=== PATIENT | female | born 1940 | race Caucasian/White ===

== ENCOUNTER 2021-10-20 07:13 | Inpatient (IN) | payer MEDICARE ==
[~2021-10-20] VITALS: Ht 167.6 cm; Wt 64.0 kg
[~2021-10-20 07:13] MED LIST: ARICEPT5 MG PO; ELIQUIS2.5 MG PO; ENDOCET 10-3251 EACH PO; LISINOPRIL-HCT1 EAC2 PO; MELATONIN5 M2 PO; MIRALAX17 GM PO; NEURONTIN 300300 MG PO; OXYCODONE HCL10 MG PO; REQUIP3 MG PO; ZOCOR20 MG PO
[2021-10-20] MEDS ORDERED: CALCIUM + D3 E1 EACH PO (12:40)
[2021-10-22 03:06] LABS: HEMOGLOBIN 11.4 gm/dl (12.3-15.3); RED BLOOD COUNT 3.72 M/UL (4.00-5.10); WHITE BLOOD COUNT 15.9 K/UL (4.5-11.0)
--- NOTE | 2021-10-22 10:52 | NUR ---
dr. miranda on the floor and seeing patient received order to insert ng tube if patient have episode of vomiting and to d/c dressing and leave open to air.
[2021-10-23 02:59] LABS: WHITE BLOOD COUNT 12.7 K/UL (4.5-11.0)
[2021-10-23 03:14] LABS: HEMOGLOBIN 9.3 gm/dl (12.3-15.3)
[2021-10-24 02:58] LABS: HEMOGLOBIN 8.5 gm/dl (12.3-15.3); RED BLOOD COUNT 2.74 M/UL (4.00-5.10)
[2021-10-24 03:02] LABS: WHITE BLOOD COUNT 6.5 K/UL (4.5-11.0)
[2021-10-24 03:23] LABS: BUN/CREATININE RATIO 18 (0-10)
[2021-10-25 02:56] LABS: HEMOGLOBIN 8.9 gm/dl (12.3-15.3); RED BLOOD COUNT 2.99 M/UL (4.00-5.10); WHITE BLOOD COUNT 7.6 K/UL (4.5-11.0)
[2021-10-25 03:32] LABS: BUN/CREATININE RATIO 13 (0-10)
[2021-10-26 02:53] LABS: HEMOGLOBIN 8.6 gm/dl (12.3-15.3); RED BLOOD COUNT 2.76 M/UL (4.00-5.10); WHITE BLOOD COUNT 6.8 K/UL (4.5-11.0)
[2021-10-26 03:06] LABS: BUN/CREATININE RATIO 8 (0-10)
== END 2021-10-29 13:45 | disposition home or self-care (01) | DRG 331 ==
LOC: OR 07:13 → M/S 18:56 → OR 18:57 → M/S 10-29 13:45
PROVIDERS: ADMIT Surgery
PROC: 0DJD4ZZ Inspection of Lower Intestinal Tract, Percutaneous Endoscopic Approach (ICD-10-PCS; 2021-10-20)
PROC: 0DTG0ZZ Resection of Left Large Intestine, Open Approach (ICD-10-PCS; principal; 2021-10-20 10:55)
DX: C18.9 Malignant neoplasm of colon, unspecified (principal); I10 Essential (primary) hypertension; Z20.822 Contact with and (suspected) exposure to COVID-19; K44.9 Diaphragmatic hernia without obstruction or gangrene; M79.7 Fibromyalgia; M19.90 Unspecified osteoarthritis, unspecified site; G89.29 Other chronic pain; E78.5 Hyperlipidemia, unspecified; Z87.39 Personal history of other diseases of the musculoskeletal system and connective tissue; Z86.39 Personal history of other endocrine, nutritional and metabolic disease; Z85.42 Personal history of malignant neoplasm of other parts of uterus; Z80.9 Family history of malignant neoplasm, unspecified; Z80.0 Family history of malignant neoplasm of digestive organs; Z88.1 Allergy status to other antibiotic agents; Z88.8 Allergy status to other drugs, medicaments and biological substances; Z87.11 Personal history of peptic ulcer disease; Z86.010 Personal history of colon polyps; Z85.828 Personal history of other malignant neoplasm of skin; Z90.710 Acquired absence of both cervix and uterus
CPT/HCPCS: 36415; 80048; 82962; 85025; 88341; 88342; 97161; C9113; J0690; J1100; J1170; J1650; J2001; J2370; J2405; J2550; J2704; J2710; J3010; J3480; J7120